=== PATIENT | male | born 1985 | race African-American/Black ===

== ENCOUNTER 2017-02-12 16:53 | Emergency (ER) | payer SELFPAY ==
--- NOTE | 2017-02-12 16:57 | ER Document Report ---
ED Medical Screen (RME) - General Stated Complaint: THROAT PAIN Notes: 31 yo male with sore throat since yesterday. pt was seen in ED for sore throat 02/07, negative soft tissue neck, Rocephin and Decadron IV. pt unable to get Rx filled. able to speak and swallow without difficulty TRAVEL OUTSIDE OF THE [place] IN LAST 30 DAYS: No - Related Data Allergies/Adverse Reactions: No Known Allergies Allergy (Verified 02/12/17 16:57) Past Medical History Renal/ Medical History: Denies: Hx Peritoneal Dialysis - Immunizations Hx Diphtheria, Pertussis, Tetanus Vaccination: Yes
--- NOTE | 2017-02-12 17:35 | ER Document Report ---
ED ENT - General Chief Complaint: Sore Throat Stated Complaint: THROAT PAIN Mode of Arrival: Ambulatory Information source: Patient TRAVEL OUTSIDE OF THE [place] IN LAST 30 DAYS: No - HPI Patient complains to provider of: Throat problem Onset: Last week Onset/Duration: Gradual Quality of pain: Achy, Dull Severity: Moderate Context: Other - TESTED POS. FOR STREP 02/07 Location of pain: Throat - MORE ON LEFT SIDE Associated symptoms: Difficulty swallowing - PAINFUL, Ear pain - LEFT. denies: Face swelling, Hoarse voice Similar symptoms previously: Yes Recently seen / treated by doctor: Yes - SEE BELOW Notes: This patient was seen previously in this department on February 07, at which time he complained of sore throat, had a positive strep test, and had marketed tonsillar enlargement and uvular swelling. He was treated with intravenous antibiotics, IV fluids, and IV steroids with some resultant improvement. He was discharged with a prescription for clindamycin which he has not gotten filled, saying that he can't afford it. He says he was no money until he gets paid 4 days from now. - Related Data Allergies/Adverse Reactions: No Known Allergies Allergy (Verified 02/12/17 16:57) Past Medical History - General Information source: Patient - Social History Smoking Status: Never Smoker Cigarette use (# per day): No Chew tobacco use (# tins/day): No Frequency of alcohol use: None Drug Abuse: None Lives with: Spouse/Significant other Family History: Reviewed & Not Pertinent Patient has suicidal ideation: No Patient has homicidal ideation: No - Past Medical History Cardiac Medical History: Reports: None Pulmonary Medical History: Reports: None EENT Medical History: Reports: None Neurological Medical History: Reports: None Endocrine Medical History: Reports: None Renal/ Medical History: Reports: None. Denies: Hx Peritoneal Dialysis Malignancy Medical History: Reports None GI Medical History: Reports: None Musculoskeltal Medical History: Reports None Psychiatric Medical History: Reports: None Surgical Hx: Negative - Immunizations Hx Diphtheria, Pertussis, Tetanus Vaccination: Yes Review of Systems - Review of Systems Constitutional: See HPI, Chills, Fever EENT: See HPI Cardiovascular: No symptoms reported Respiratory: No symptoms reported Gastrointestinal: No symptoms reported Musculoskeletal: No symptoms reported Skin: No symptoms reported. denies: Rash Hematologic/Lymphatic: No symptoms reported Neurological/Psychological: No symptoms reported Physical Exam - Vital signs Vitals: Temp Pulse Resp BP Pulse Ox 98.4 F 78 17 135/55 H 98 02/12/17 16:58 02/12/17 16:58 02/12/17 16:58 02/12/17 16:58 02/12/17 16:58 Interpretation: Normal. No: Tachycardic, Tachypneic, Febrile - General General appearance: Appears well, Alert In distress: None - HEENT Head: Normocephalic Eyes: Normal Conjunctiva: Normal Ears: Normal External canal: Normal Tympanic membrane: Normal Nasal: Normal Mouth/Lips: Normal Mucous membranes: Dry - SLIGHTLY Pharynx: Erythema - MODERATE, IN TONSILLAR AREA, Tonsillar hypertrophy - MORE ON LEFT, Other - UVULA IS MIDLINE. No: Exudate, Peritonsillar abscess, Uvular edema, Potential airway comprom. Neck: Anterior cervical chain - Respiratory Respiratory status: No respiratory distress Breath sounds: Normal - Cardiovascular Rhythm: Regular Heart sounds: Normal auscultation Murmur: No - Abdominal Inspection: Normal Distension: No distension - Extremities General upper extremity: Normal inspection General lower extremity: Normal inspection - Neurological Neuro grossly intact: Yes Cognition: Normal Orientation: AAOx4 - Psychological Associated symptoms: Normal affect, Normal mood - Skin Skin Temperature: Warm Skin Moisture: Dry Skin Color: Normal Skin Turgor: Elastic Course - Vital Signs Vital signs: Temp Pulse Resp BP Pulse Ox 98.4 F 78 17 135/55 H 98 02/12/17 16:58 02/12/17 16:58 02/12/17 16:58 02/12/17 16:58 02/12/17 16:58 Discharge - Discharge Clinical Impression: Strep pharyngitis Condition: Stable Disposition: HOME, SELF-CARE Instructions: Strep Throat ([facility]), IV Antibiotics ([facility]), Clindamycin ([facility]) Additional Instructions: DRINK PLENTY OF FLUIDS. GET YOUR ANTIBIOTIC PRESCRIPTION FILLED AND BEGIN TAKING IT TOMORROW. FAILURE TO PROPERLY TREAT A STREP INFECTION CAN ALLOW HEART DAMAGE OR KIDNEY DAMAGE TO OCCUR, WITH LIFE-THREATENING CONSEQUENCES! TAKE IBUPROFEN OR NAPROXEN TO REDUCE PAIN AND INFLAMMATION. RETURN TO E.R. IF YOU GET WORSE, ANY TIME.
[2017-02-12] MEDS ORDERED: DEXAMETHASONE SOD PHOS INJ 10 MG/1 ML VIAL IV ONE (17:47)
[2017-02-12] MEDS ORDERED: NORMAL SALINE 1000 ML 2,000 ML IV ONE (17:47)
[2017-02-12] MEDS ORDERED: CLINDAMYCIN 600 MG/D5W RTU 50 ML IV ONE (17:47)
[2017-02-12 21:21] VITALS: BP 132/72
== END 2017-02-12 21:21 | disposition home or self-care (01) ==
LOC: ER 16:53
DX: J02.0 Streptococcal pharyngitis (principal); R50.9 Fever, unspecified; H92.02 Otalgia, left ear
CPT/HCPCS: 99283; 96375; 96365; J7030; J1100

== ENCOUNTER 2019-01-29 10:21 | Emergency (ER) | payer SELFPAY ==
[2019-01-29 11:17] VITALS: BP 132/80
--- NOTE | 2019-01-29 20:48 | ER Document Report ---
Entered by MITCH GARZA SCRIBE 01/29/19 1056 Acting as scribe for:CARLY FUNEZ DO ED General - General Chief Complaint: Headache Stated Complaint: HEADACHE/THROAT PAIN Time Seen by Provider: 01/29/19 10:35 Mode of Arrival: Ambulatory Information source: Patient Notes: Patient is a 33 year old male presenting to the emergency department complaining of sinus congestion and head pressure onset 3 days ago. Patient states he has tried [place] and BC powder with no relief. He does report a small amount of diarrhea. He denies fevers, numbness or tingling sensations or a cough. TRAVEL OUTSIDE OF THE [place] IN LAST 30 DAYS: No - Related Data Allergies/Adverse Reactions: No Known Allergies Allergy (Verified 01/29/19 10:22) Past Medical History - General Information source: Patient - Social History Smoking Status: Current Every Day Smoker Cigarette use (# per day): Yes Chew tobacco use (# tins/day): No Smoking Education Provided: No Frequency of alcohol use: Occasional Family History: Reviewed & Not Pertinent Patient has suicidal ideation: No Patient has homicidal ideation: No Pulmonary Medical History: Reports: Hx Asthma - childhood - Immunizations Hx Diphtheria, Pertussis, Tetanus Vaccination: Yes Review of Systems - Review of Systems Constitutional: No symptoms reported EENT: See HPI Cardiovascular: No symptoms reported Respiratory: No symptoms reported Gastrointestinal: No symptoms reported Genitourinary: No symptoms reported Male Genitourinary: No symptoms reported Musculoskeletal: No symptoms reported Skin: No symptoms reported Hematologic/Lymphatic: No symptoms reported Neurological/Psychological: No symptoms reported -: Yes All other systems reviewed and negative Physical Exam - Vital signs Vitals: Temp Pulse Resp BP Pulse Ox 99.2 F 98 18 132/80 H 97 01/29/19 11:03 01/29/19 11:03 01/29/19 11:03 01/29/19 11:03 01/29/19 11:03 - Notes Notes: GENERAL: Alert, interacts well. No acute distress. HEAD: Normocephalic, atraumatic. No tenderness to sinus percussion. EYES: Pupils equal, round, and reactive to light. Extraocular movements intact. ENT: Oral mucosa moist, tongue midline. Nares patent, no nasal septal hematoma, TM's bugling with clear fluid bilaterally. Post nasal drip. NECK: Full range of motion. Supple. Trachea midline. LUNGS: No respiratory distress. EXTREMITIES: Moves all 4 extremities spontaneously. NEUROLOGICAL: Alert and oriented x3. Normal speech. PSYCH: Normal affect, normal mood. SKIN: Warm, dry, normal turgor. No rashes or lesions noted. Course - Re-evaluation Re-evalutation: 01/29/19 10:53 Well-appearing, consistent with viral upper respiratory infection. No indication for antibiotics. Counseled on decongestants and nasal steroids as well as nasal saline rinses. Discharged home. No neurologic deficits, no red flag symptoms that would suggest intracranial hemorrhage. - Vital Signs Vital signs: Temp Pulse Resp BP Pulse Ox 99.2 F 98 18 132/80 H 97 01/29/19 11:03 01/29/19 11:03 01/29/19 11:03 01/29/19 11:03 01/29/19 11:03 Discharge - Discharge Clinical Impression: Viral upper respiratory infection Condition: Stable Disposition: HOME, SELF-CARE Additional Instructions: Upper Respiratory Illness You have a viral infection of the respiratory passages -- a "cold." This common infection causes nasal congestion, drainage, and often sore throat and cough. It is caused by a virus and is highly contagious. The disease usually lasts a week or more, though the worst symptoms are usually over in 3 or 4 days. There is no "cure" for the viral infection -- it must run its course. If there is a complication, such as bacterial infection in the nose, sinuses, middle ear, or bronchial tubes, antibiotics may be required, but antibiotics won't affect the virus. If you smoke, you should STOP!! Drink plenty of fluids. A humidifier may help. An expectorant medication or decongestant may make you more comfortable. Use acetaminophen or ibuprofen for fever or aches. See the doctor if fever persists over two or three days, if there is any significant worsening of your symptoms, or if you simply fail to improve as expected. Please use nasal saline rinses such as a NetiPot or NeilMed Sinus Rinses. You may use Benadryl at night and Sudafed during the day both as directed on the box [id number]. Please use Nasonex or other nasal steroid 1 squirt per nostril twice a day. Many of these are available [id number] but I have written you a prescription for Nasonex specifically. Please use ibuprofen (Motrin or Advil) 600-800 mg every 8 hours as needed for pain or fever. You may also use acetaminophen (Tylenol) 1000 mg every 4-6 hours as needed for pain or fever. Please be aware that many medications contain acetaminophen, do not exceed a total of 1000 mg of acetaminophen every 6 hours. Prescriptions: Mometasone Furoate [Nasonex] 1 spray NS Q12 #1 spray.pump I personally performed the services described in the documentation, reviewed and edited the documentation which was dictated to the scribe in my presence, and it accurately records my words and actions.
== END 2019-01-29 11:05 | disposition home or self-care (01) ==
LOC: ER 10:21
DX: J06.9 Acute upper respiratory infection, unspecified (principal); B97.89 Other viral agents as the cause of diseases classified elsewhere; R09.81 Nasal congestion; R09.82 Postnasal drip; R19.7 Diarrhea, unspecified; F17.210 Nicotine dependence, cigarettes, uncomplicated
CPT/HCPCS: 99283

== ENCOUNTER 2019-10-08 00:29 | Emergency (ER) | payer SELFPAY ==
[2019-10-08 01:50] LABS: ABSOLUTE BASOPHILS # (AUTO) 0.1 10^3/uL (0.0-0.2); ABSOLUTE MONOCYTES (AUTO) 0.4 10^3/uL (0.1-1.4); BASOPHILS % (AUTO) 0.7 % (0-2); HEMATOCRIT 44.5 % (37.9-51.0); HEMOGLOBIN 14.9 g/dL (13.5-17.0); LYMPHOCYTES % (AUTO) 9.2 % (13-45); MEAN CORPUSCULAR HEMOGLOBIN 32.3 pg (27.0-33.4); MEAN CORPUSCULAR HGB CONC 33.6 g/dL (32.0-36.0); MEAN CORPUSCULAR VOLUME 96 fl (80-97); MONOCYTES % (AUTO) 3.5 % (3-13); PLATELET COUNT 245 10^3/uL (150-450); RED BLOOD COUNT 4.63 10^6/uL (4.35-5.55); RED CELL DISTRIBUTION WIDTH 13.9 % (11.5-14.0); SEGMENTED NEUTROPHILS % (AUTO) 86.6 % (42-78); TOTAL CELLS COUNTED % (AUTO) 100 %; WHITE BLOOD COUNT 10.4 10^3/uL (4.0-10.5)
[2019-10-08 02:02] LABS: AMORPHOUS SEDIMENT,URINE TRACE /HPF; APPEARANCE,URINE CLOUDY; BILIRUBIN,URINE NEGATIVE (NEGATIVE); COLOR,URINE YELLOW; GLUCOSE, URINE NEGATIVE (NEGATIVE); KETONES,URINE NEGATIVE (NEGATIVE); LEUKOCYTE ESTERASE,URINE NEGATIVE (NEGATIVE); NITRITE,URINE NEGATIVE (NEGATIVE); PROTEIN,URINE 30 mg/dL (NEGATIVE); URINE SPECIFIC GRAVITY 1.013; UROBILINOGEN,URINE NEGATIVE mg/dL (<2.0)
[2019-10-08 02:09] LABS: ALBUMIN 3.9 g/dL (3.5-5.0); ALKALINE PHOSPHATASE 52 U/L (38-126); ANION GAP 8 (5-19); ASPARTATE AMINO TRANSFERASE 29 U/L (17-59); BILIRUBIN,TOTAL 0.3 mg/dL (0.2-1.3); BLOOD UREA NITROGEN 9 mg/dL (7-20); CARBON DIOXIDE 30 mmol/L (22-30); CHLORIDE 102 mmol/L (98-107); GLUCOSE 138 mg/dL (75-110); POTASSIUM 3.6 mmol/L (3.6-5.0); TOTAL PROTEIN 6.8 g/dL (6.3-8.2)
[2019-10-08] MEDS ORDERED: ONDANSETRON HCL INJ/PF 4 MG/2 ML SDV IV ONE (03:46)
[2019-10-08] MEDS ORDERED: NORMAL SALINE 1000 ML 1,000 ML IV ONE ×2 (03:46→03:47)
[2019-10-08] MEDS ORDERED: MORPHINE SULFATE 10 MG/ML INJ IV ONE (03:47)
--- NOTE | 2019-10-08 03:48 | ER Document Report ---
ED GI/ - General Chief Complaint: Abdominal Pain Stated Complaint: ABDOMINAL PAIN Time Seen by Provider: 10/08/19 03:43 Notes: Patient is a 34-year-old male that comes to the emergency department for chief complaint of vomiting, diarrhea, abdominal pain. Symptoms started 830 tonight, he states he has vomited 6 times and had several loose stools. He denies blood in either. He denies fever. He denies any recent antibiotics, travel, or eldridge spicious foods. No obvious sick contacts. He denies any surgeries, daily medications, or past medical history. TRAVEL OUTSIDE OF THE [place] IN LAST 30 DAYS: No - Related Data Allergies/Adverse Reactions: No Known Allergies Allergy (Verified 10/08/19 01:24) Home Medications: Pt denies home medications Past Medical History - General Information source: Patient - Social History Smoking Status: Current Every Day Smoker Chew tobacco use (# tins/day): No Frequency of alcohol use: Occasional Drug Abuse: None Lives with: Family Family History: Reviewed & Not Pertinent Patient has suicidal ideation: No Patient has homicidal ideation: No Pulmonary Medical History: Reports: Hx Asthma - childhood Renal/ Medical History: Denies: Hx Peritoneal Dialysis - Immunizations Hx Diphtheria, Pertussis, Tetanus Vaccination: Yes Review of Systems - Review of Systems Constitutional: No symptoms reported EENT: No symptoms reported Cardiovascular: No symptoms reported Respiratory: No symptoms reported Gastrointestinal: See HPI Genitourinary: No symptoms reported Male Genitourinary: No symptoms reported Musculoskeletal: No symptoms reported Skin: No symptoms reported Hematologic/Lymphatic: No symptoms reported Neurological/Psychological: No symptoms reported Physical Exam - Vital signs Vitals: Temp Pulse Resp BP Pulse Ox 98.0 F 76 14 116/62 97 10/08/19 00:52 10/08/19 00:52 10/08/19 00:52 10/08/19 00:52 10/08/19 00:52 - Notes Notes: GENERAL: Alert, interacts well. No acute distress. HEAD: Normocephalic, atraumatic. EYES: Pupils equal, round, and reactive to light. Extraocular movements intact. ENT: Oral mucosa moist, tongue midline. Oropharynx unremarkable. Airway patent LUNGS: Clear to auscultation bilaterally, no wheezes, rales, or rhonchi. No respiratory distress. HEART: Regular rate and rhythm. No murmur ABDOMEN: Benign abdomen with no obvious tenderness, guarding, or rigidity. Fast bowel sounds GENITOURINARY: Deferred EXTREMITIES: Moves all 4 extremities spontaneously. No edema, normal radial and dorsalis pedis pulses bilaterally. No cyanosis. BACK: no cervical, thoracic, lumbar midline tenderness. No saddle anesthesia, normal distal neurovascular exam. Moves all extremities in full range of motion. NEUROLOGICAL: Alert and oriented x3. Normal speech. Cranial nerves II through XII grossly intact. PSYCH: Normal affect, normal mood. SKIN: Warm, dry, normal turgor. No rashes or lesions noted. Course - Re-evaluation Re-evalutation: Patient vomited just before I entered the room. However he has no CVA tenderness, his abdomen is actually completely benign, he complains of generalized soreness over the abdomen. Vital signs unremarkable. After symptom management and IV fluids patient states he feels much better. He appears much more comfortable. CBC, chemistry, lipase, urinalysis all unrem arkable. Based on his vomiting, diarrhea, work-up, exam, I have a very low suspicion of acute abdomen. Suspect viral illness. Patient given p.o. and tolerated this without difficulty. Discussed follow-up and return precautions. Patient and significant other state understanding and agreement. - Vital Signs Vital signs: Temp Pulse Resp BP Pulse Ox 98.0 F 68 14 120/70 97 10/08/19 06:35 10/08/19 06:35 10/08/19 06:35 10/08/19 06:35 10/08/19 00:52 - Laboratory Result Diagrams: 10/08/19 01:37 10/08/19 01:37 Laboratory results interpreted by me: 10/08/19 10/08/19 10/08/19 01:37 01:37 01:37 Lymph % (Auto) 9.2 L Absolute Neuts (auto) 9.0 H Seg Neutrophils % 86.6 H Glucose 138 H Urine Protein 30 H Discharge - Discharge Clinical Impression: Nausea vomiting and diarrhea Abdominal pain Qualifiers: Abdominal location: generalized Qualified Code(s): R10.84 - Generalized abdominal pain Condition: Stable Disposition: HOME, SELF-CARE Additional Instructions: Your evaluation is reassuring, this is most likely viral and should resolve with time. Drink plenty of fluids, take medication as prescribed, start with bland food and slowly progress. Follow-up with primary care. Return if you worsen including uncontrolled vomiting, severe worsening pain, fever, or any other concerning or worsening symptoms. Prescriptions: Famotidine [Pepcid 20 mg Tablet] 20 mg PO BID #12 tablet Promethazine HCl [Phenergan 25 mg Tablet] 25 mg PO Q6H PRN #15 tablet PRN Reason: Forms: Return to Work
[2019-10-08] MEDS ORDERED: PROMETHAZINE HCL 25 MG TABLET PO ONE (04:46)
[2019-10-08] MEDS ORDERED: FAMOTIDINE 20 MG TABLET PO ONE (04:46)
[2019-10-08] MEDS ORDERED: ONDANSETRON ODT 4 MG TAB (6 TAB/ER DISP) PO PRN (06:15)
[2019-10-08 06:38] VITALS: BP 120/70
== END 2019-10-08 06:35 | disposition home or self-care (01) ==
LOC: ER 00:29
DX: R19.7 Diarrhea, unspecified (principal); R11.2 Nausea with vomiting, unspecified; R10.84 Generalized abdominal pain; F17.200 Nicotine dependence, unspecified, uncomplicated
CPT/HCPCS: 36415; 83690; 85025; 80053; 81001; J2270; J2405; J7030; 96361; 96374; 96375; 99284

== ENCOUNTER 2019-10-08 23:30 | Emergency (ER) | payer SELFPAY ==
[2019-10-09] MEDS ORDERED: ONDANSETRON HCL INJ/PF 4 MG/2 ML SDV IV ONE (00:11)
[2019-10-09] MEDS ORDERED: NORMAL SALINE 1000 ML 1,000 ML IV ONE (00:11)
[2019-10-09] MEDS ORDERED: MORPHINE SULFATE 10 MG/ML INJ IV ONE ×2 (00:11→02:28)
--- NOTE | 2019-10-09 00:37 | ER Document Report ---
ED GI/ - General Chief Complaint: Abdominal Pain Stated Complaint: STOMACH PAIN,VOMITING Time Seen by Provider: 10/09/19 00:06 Notes: Patient is a 34-year-old male that comes emergency department for chief complaint of mid upper abdominal pain and vomiting 3 times tonight. The patient was evaluated by me yesterday after he came for nausea, vomiting, diarrhea, he states that he went home after initial treatments, he states he felt great all day but he was only sipping fluids, he states that tonight he ate a burger and chicken nuggets from [employer] and he still felt all right but then 1 hour later he started having sharp abdominal pains and vomited several times. He states the diarrhea from yesterday has resolved. He denies fever or chills. He denies flank pain. He denies any other complaints at this time. He denies any surgeries, denies TRAVEL OUTSIDE OF THE [place] IN LAST 30 DAYS: No - Related Data Allergies/Adverse Reactions: No Known Allergies Allergy (Verified 10/08/19 23:46) Past Medical History - General Information source: Patient - Social History Smoking Status: Current Every Day Smoker Chew tobacco use (# tins/day): No Frequency of alcohol use: Occasional Drug Abuse: None Lives with: Family Family History: Reviewed & Not Pertinent Patient has suicidal ideation: No Patient has homicidal ideation: No Pulmonary Medical History: Reports: Hx Asthma - childhood Renal/ Medical History: Denies: Hx Peritoneal Dialysis Surgical Hx: Negative - Immunizations Hx Diphtheria, Pertussis, Tetanus Vaccination: Yes Review of Systems - Review of Systems Constitutional: No symptoms reported EENT: No symptoms reported Cardiovascular: No symptoms reported Respiratory: No symptoms reported Gastrointestinal: See HPI Genitourinary: No symptoms reported Male Genitourinary: No symptoms reported Musculoskeletal: No symptoms reported Skin: No symptoms reported Hematologic/Lymphatic: No symptoms reported Neurological/Psychological: No symptoms reported Physical Exam - Vital signs Vitals: Temp Pulse Resp BP Pulse Ox 97.8 F 68 20 132/87 H 100 10/08/19 23:46 10/08/19 23:46 10/08/19 23:46 10/08/19 23:46 10/08/19 23:46 - Notes Notes: GENERAL: Alert, slightly restless, mildly uncomfortable but not in distress HEAD: Normocephalic, atraumatic. EYES: Pupils equal, round, and reactive to light. Extraocular movements intact. ENT: Oral mucosa moist, tongue midline. Oropharynx unremarkable. Airway patent. NECK: Full range of motion. Supple. Trachea midline. LUNGS: Clear to auscultation bilaterally, no wheezes, rales, or rhonchi. No respiratory distress. HEART: Regular rate and rhythm. No murmur ABDOMEN: There is generalized tenderness to the upper abdomen in all quadrants but there is no specific area of guarding. Lower abdomen is benign. Bowel sounds present. No distention or rigidity. GENITOURINARY: Deferred EXTREMITIES: Moves all 4 extremities spontaneously. No edema, normal radial and dorsalis pedis pulses bilaterally. No cyanosis. BACK: no cervical, thoracic, lumbar midline tenderness. No saddle anesthesia, normal distal neurovascular exam. Moves all extremities in full range of motion. NEUROLOGICAL: Alert and oriented x3. Normal speech. Cranial nerves II through XII grossly intact. PSYCH: Slightly restless SKIN: Warm, dry, normal turgor. No rashes or lesions noted. Course - Re-evaluation Re-evalutation: Patient has generalized upper abdominal tenderness, he states he had no symptoms and he was doing well until he ate [employer] this evening and then started vomiting afterwards. He did not have diarrhea during the day. He is well- appearing otherwise. Because symptoms worsened after he ate, we will make sure that the upper abdominal ultrasound does not show any concerning pathology, however based on his overall clinical picture I do suspect still that he either had a viral illness or toxin that he is recovering from and he started eating fatty foods too soon. CBC shows mild leukocytosis, nonspecific. No bandemia, chemistry unremarkable including lipase, LFTs, bilirubin. Ultrasound without any concerning findings. Patient comfortable and well-appearing on reevaluation. Given p.o. trial. I di d reevaluate his abdomen and it is soft and benign. I do not suspect acute appendicitis or other acute abdomen etiology based on his evaluation. I discussed with patient. He tolerated p.o. again without any difficulty. He is extremely benign on reevaluation. I did discuss possible CAT scan because of the different etiologies he could have, negative ultrasound, and return visit, however he declined this after discussion because he feels much better. He states that he will be much more cautious this time, he admits that he took ibuprofen prior to eating greasy food and suddenly worsened after he was doing fine. Overall suspicion is still gastritis, discussed follow-up, expectations, return precautions. Patient and family member state understanding and agreement. - Vital Signs Vital signs: Temp Pulse Resp BP Pulse Ox 98.7 F 51 L 16 111/49 L 98 10/09/19 02:53 10/09/19 02:53 10/09/19 02:53 10/09/19 02:53 10/09/19 02:53 - Laboratory Result Diagrams: 10/09/19 00:50 10/09/19 00:50 Laboratory results interpreted by me: 10/09/19 10/09/19 00:50 00:50 WBC 10.8 H Absolute Neuts (auto) 8.5 H Seg Neutrophils % 78.8 H Potassium 3.4 L Glucose 116 H Discharge - Discharge Clinical Impression: Abdominal pain Qualifiers: Abdominal location: upper abdomen, unspecified Qualified Code(s): R10.10 - Upper abdominal pain, unspecified Vomiting Qualifiers: Vomiting type: unspecified Vomiting Intractability: non-intractable Nausea presence: with nausea Qualified Code(s): R11.2 - Nausea with vomiting, unspecified Condition: Stable Disposition: HOME, SELF-CARE Additional Instructions: Your ultrasound is normal. Your exam and labs are reassuring. Your symptoms and examination indicate inflammation of your upper gastrointestinal tract). take the previous prescriptions to treat this, you can take additional Rolaids, Tums, Maalox, etc. if needed. You can take Tylenol for pain. Avoid NSAIDs (ibuprofen, naproxen, Aspirin, BC powder, etc), alcohol, smoking, caffeine, spicy food. Start with clear fluids, progress to bland diet. Follow-up with primary care for additional evaluation and treatment including possible H. pylori testing. Return if you worsen including uncontrolled vomiting, vomiting blood, black stools, severe pain, fever of 100.4 or greater, or any other concerning or worsening symptoms.
[2019-10-09 01:01] LABS: ABSOLUTE LYMPHOCYTES (AUTO) 1.4 10^3/uL (0.5-4.7); ABSOLUTE MONOCYTES (AUTO) 0.8 10^3/uL (0.1-1.4); ABSOLUTE NEUT (AUTO) 8.5 10^3/uL (1.7-8.2); BASOPHILS % (AUTO) 0.3 % (0-2); EOSINOPHILS % (AUTO) 0.2 % (0-6); HEMATOCRIT 43.6 % (37.9-51.0); HEMOGLOBIN 14.8 g/dL (13.5-17.0); LYMPHOCYTES % (AUTO) 13.2 % (13-45); MEAN CORPUSCULAR HEMOGLOBIN 32.8 pg (27.0-33.4); MEAN CORPUSCULAR VOLUME 97 fl (80-97); MONOCYTES % (AUTO) 7.5 % (3-13); PLATELET COUNT 218 10^3/uL (150-450); RED BLOOD COUNT 4.52 10^6/uL (4.35-5.55); RED CELL DISTRIBUTION WIDTH 13.9 % (11.5-14.0); SEGMENTED NEUTROPHILS % (AUTO) 78.8 % (42-78); TOTAL CELLS COUNTED % (AUTO) 100 %; WHITE BLOOD COUNT 10.8 10^3/uL (4.0-10.5)
--- NOTE | 2019-10-09 01:12 | RADIOLOGY REPORT (SQ) ---
EXAM DESCRIPTION: US ABDOMEN LIMITED COMPLETED DATE/TME: 10/09/2019 00:11 CLINICAL HISTORY: 34 years Male epigastric pain, vomiting COMPARISON: None. TECHNIQUE: Transabdominal grayscale imaging were performed to evaluate the right upper quadrant. FINDINGS: The liver appears unremarkable. The visualized segments of the pancreas are unremarkable. Aorta and IVC appear unremarkable. No intrahepatic ductal dilatation. Patent hepatopedal portal vein. Unremarkable right kidney. No hydronephrosis or mass. No evidence of gallbladder wall thickening or stones. No surrounding fluid. Common duct measures 2 mm. IMPRESSION: Unremarkable right upper quadrant
[2019-10-09 01:17] LABS: ALBUMIN 3.7 g/dL (3.5-5.0); ALKALINE PHOSPHATASE 58 U/L (38-126); ANION GAP 8 (5-19); ASPARTATE AMINO TRANSFERASE 34 U/L (17-59); BILIRUBIN,TOTAL 0.4 mg/dL (0.2-1.3); BLOOD UREA NITROGEN 8 mg/dL (7-20); CALCIUM 8.7 mg/dL (8.4-10.2); CARBON DIOXIDE 27 mmol/L (22-30); CHLORIDE 104 mmol/L (98-107); GLUCOSE 116 mg/dL (75-110); POTASSIUM 3.4 mmol/L (3.6-5.0); TOTAL PROTEIN 6.6 g/dL (6.3-8.2)
[2019-10-09] MEDS ORDERED: LIDOCAINE 2% VISCOUS SOLN 20 ML UDCUP PO ONE (01:30)
[2019-10-09] MEDS ORDERED: MAG HYDROX/AL HYDROX/SIMETH SUSP 30 ML UDCUP PO ONE (01:30)
[2019-10-09] MEDS ORDERED: METOCLOPRAMIDE HCL ORAL SOLN 10 MG/10 ML UDCUP PO ONE (01:30)
[2019-10-09] MEDS ORDERED: HYDROCODONE/ACETAMINOPHEN 5-325 MG (6 TAB/ER DISP) PO PRN (02:28)
[2019-10-09 02:58] VITALS: BP 111/49
== END 2019-10-09 02:58 | disposition home or self-care (01) ==
LOC: ER 23:30
DX: R10.10 Upper abdominal pain, unspecified (principal); R11.2 Nausea with vomiting, unspecified; F17.200 Nicotine dependence, unspecified, uncomplicated
CPT/HCPCS: 36415; 83690; 85025; 80053; 76705; J3490; J2270; J2405; J7030

== ENCOUNTER 2020-05-16 13:47 | Emergency (ER) | payer SELFPAY ==
[2020-05-16 13:55] VITALS: BP 118/74
[2020-05-16] MEDS ORDERED: OXYCODONE-ACETAMINOPHEN 5-325 MG TABLET PO ONE (13:57)
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
== END 2020-05-16 14:37 | disposition home or self-care (01) ==
LOC: ER 13:47
PROC: 2W3CX1Z Immobilization of Right Lower Arm using Splint (ICD-10-PCS; principal; 2020-05-16)
DX: S69.91XA Unspecified injury of right wrist, hand and finger(s), initial encounter (principal); M25.531 Pain in right wrist; M79.89 Other specified soft tissue disorders; V19.9XXA Pedal cyclist (driver) (passenger) injured in unspecified traffic accident, initial encounter; J45.909 Unspecified asthma, uncomplicated
CPT/HCPCS: 99283